=== PATIENT | female | born 1955 | race Asian ===

== ENCOUNTER 2017-07-29 04:55 | Day surgery (SDC) | payer OTHER ==
[2017-07-28 18:03] VITALS: BMI 22.4
[2017-07-29] MEDS ORDERED: ISOSULFAN BLUE 10 MG/ML VIAL SQ ONE (12:29)
[2017-07-29] MEDS ORDERED: PROPOFOL 20 ML ONE (12:37)
[2017-07-29] MEDS ORDERED: MIDAZOLAM HCL 2 MG/2 ML SINGLE DOSE VIAL ONE (12:37)
[2017-07-29] MEDS ORDERED: LIDOCAINE HCL/PF 2% SDV 5ML VIAL ONE (12:55)
[2017-07-29] MEDS ORDERED: DEXAMETHASONE SOD PHOSPHATE 4 MG/1 ML VIAL ONE (13:01)
[2017-07-29] MEDS ORDERED: ceFAZolin SODIUM 1 GM VIAL ONE (13:02)
[2017-07-29] MEDS ORDERED: SODIUM CHLORIDE 0.9% P/F 10 ML VIAL IJ ONE (13:02)
[2017-07-29] MEDS ORDERED: ceFAZolin SODIUM 1 GM VIAL IVPB ONE (13:04)
[2017-07-29] MEDS ORDERED: KETOROLAC TROMETHAMINE 30 MG/1 ML VIAL ONE (13:49)
[2017-07-29] MEDS ORDERED: PROMETHAZINE HCL 25 MG/1 ML VIAL IVPUSH PRN (14:20)
[2017-07-29] MEDS ORDERED: ONDANSETRON 4 MG/2 ML VIAL IVPUSH PRN (14:20)
--- NOTE | 2017-07-29 14:28 | HP ---
History & Physical Update - History History: No Change - Physical Physical: No Change - Assessment Assessment: No Change - Plan Plan: No Change
[2017-07-29] MEDS ORDERED: LACTATED RINGERS SOLUTION 1,000 ML IV SCH (14:30)
--- NOTE | 2017-07-29 15:04 | OP ---
DATE OF OPERATION: 07/29/2017 PREOPERATIVE DIAGNOSIS: Right breast cancer. POSTOPERATIVE DIAGNOSIS: Right breast cancer. PROCEDURE: Right breast ultrasound-guided wire localized lumpectomy with sentinel node biopsy. SURGEON: Hailee Boss MD ANESTHESIA: General. ESTIMATED BLOOD LOSS: Minimal. COMPLICATIONS: None. DISPOSITION: Stable at the end of the procedure. INDICATION FOR PROCEDURE: Patient presented with an abnormal screening mammogram, and ultrasound noted a mass in the retroareolar, slightly inner right breast. A needle core biopsy showed invasive carcinoma. My recommendation was a lumpectomy and sentinel node biopsy. Though this was close to the nipple, I felt this was more adjacent to the nipple, and I felt I could probably get a margin around anteriorly. The procedure was discussed with her. All the questions answered. The option of a mastectomy was discussed as well. PROCEDURE IN DETAIL: Patient was brought to [facility], taken to Nuclear Medicine where technetium labeled sulfur colloid was injected by the nuclear medicine radiologist as a periareolar incision in the outer right breast. She was brought to the operating room. After induction of general anesthesia, an intraoperative ultrasound was performed by me, and the lesion in the right breast 3 o'clock retroareolar location was identified. A Kopans wire was used to localize this under the usual aseptic technique. Next, 5 mL of isosulfan blue dye was injected into the right subareolar plexus. The breast was then massaged for 5 minutes. The right breast and axilla were then prepped and draped in the usual sterile fashion. A 4-cm incision was made in the right axilla, carried down to the clavipectoral fascia to identify a sentinel lymph node that was blue and hot. There was no other blue dye or radioactivity in the axilla. However, I did feel a larger lymph node which I sent as a right axillary non-sentinel node. This is likely the dominant node. There was a second non-sentinel node as well adjacent to this. So, this was all sent as right axillary non-sentinel node. Hemostasis assured with electrocautery. Again, there was no other blue dye radioactivity or pathological feeling lymph nodes in the right axilla including against the chest wall, and after this, the sentinel node biopsy was completed. The right lumpectomy was performed. An ellipse of skin was taken to include the part of the nipple medially at the 3 o'clock location out radially. Superior, inferior, medial, and lateral flaps were raised, and the en bloc lumpectomy was performed, tagged with a long stitch lateral, short stitch superior. I did feel I was partially close anteriorly. However, I was not sure if this was truly just a part of the nipple or dermis. I also felt I was close inferiorly and superiorly. Therefore, I took a new superior margin with a stitch at the old margin and a new inferior margin with a stitch at the old margin. These specimens were all sent to Pathology for permanent section. Hemostasis was assured with electrocautery. The parenchyma was approximated with interrupted 2-0 Vicryl, skin approximated with interrupted 2-0 Vicryl and running 4-0 Prolene. The axillary incision was also closed in the routine fashion with interrupted 0 Vicryl and running 4-0 Prolene. A sterile dressing with Tegaderm and 4 x 4's applied. She tolerated the procedure well, was extubated on the operating room table, and was taken to Recovery in good condition. Mai [id number]
[2017-07-29 17:08] VITALS: TEMP 98.4
[2017-07-29 18:19] VITALS: BP 147/77; PULSE 74
--- NOTE | 2017-08-04 14:29 | PATH ---
Surgical Pathology Report Patient Name: BALDEV HAMEED [facility]. Rec. #: [id number] /Age/Gender: 1955 (Age: 62) / F Account: [id number] Location: [facility] Taken: 07/29/2017 Received: 07/30/2017 Reported: 08/04/2017 Physicians: Hailee Boss M.D. Specimen(s) Received A: RIGHT AXILLARY SENTINEL LYMPH NODE B: RIGHT AXILLARY NON SENTINEL LYMPH NODE (DOMINANT NODE) C: RIGHT BREAST LUMPECTOMY D: RIGHT BREAST NEW SUPERIOR MARGIN E: RIGHT BREAST NEW INFERIOR MARGIN Clinical History Invasive carcinoma Final Diagnosis A. Axillary sentinel node #1, right, excision: One of TWO lymph nodes with MICROmetastatic carcinoma (1/2, micrometastasis less < 2 mm). Carcinoma measures 1 mm in greatest microscopic dimension. No extranodal extension identified. B. Axillary non-sentinel lymph node, right, excision: FOUR benign lymph nodes (0/4). C. BREAST RIGHT, LUMPECTOMY: INVASIVE DUCTAL CARCINOMA, WELL DIFFERENTIATED (TUBULE SCORE: 2/3, NUCLEAR GRADE: 2/3, MITOTIC SCORE: 1/3; TOTAL SHAQUILLE SCORE: 5/9). INVASIVE CARCINOMA MEASURES 1.4 CM IN GREATEST DIMENSION, MICROSCOPICALLY. FOCAL DUCTAL CARCINOMA IN SITU (DCIS), SOLID AND CRIBRIFORM TYPES, INTERMEDIATE NUCLEAR GRADE. NO LYMPHOVASCULAR INVASION IDENTIFIED. Invasive carcinoma extends to INKED AND CAUTERIZED SUPERIOR MARGIN and <1mm FROM iNFERIOR MARGIN. dcis IS 3 mm FROM CLOSEST superior MARGIN. SEE SPECIMEN D-E FOR FINAL MARGINS. SKIN IS PRESENT AND UNINVOLVED BY CARCINOMA. Microcalcifications present within invasive carcinoma and benign breast tissue. Remainder of breast tissue shows fibrocystic to fibroadenomatoid changes including stromal fibrosis, microcysts, and usual ductal hyperplasia. PRIOR BIOPSY SITE CHANGES ARE PRESENT. PATHOLOGIC STAGE (pTNM): pT1c pN1mi. SEE INVASIVE CARCINOMA CASE SUMMARY BELOW. D. BREAST, RIGHT, NEW SUPERIOR MARGIN, EXCISION: BENIGN BREAST TISSUE. E. BREAST, RIGHT, NEW INFERIOR MARGIN, EXCISION: BENIGN BREAST TISSUE WITH PROLIFERATIVE FIBROCYSTIC CHANGES INCLUDING STROMAL FIBROSIS MICROCYSTS, AND USUAL DUCTAL HYPERPLASIA. Comment: Immunohistochemical stain performed at [place], [place] ([id number]) and interpreted at [facility] show the invasive carcinoma is positive for E-cadherin, supporting ductal phenotype. Comments Breast Invasive Carcinoma: Surgical Pathology Case Summary (Based on AJCC TNM 8 th edition) Procedure _X_ Excision (less than total mastectomy) Specimen Laterality _X_ Right Tumor Size _X_ Greatest dimension of largest invasive focus >1 mm (specify exact measurement) (millimeters): _14_ mm Histologic Type _X_ Invasive carcinoma of no special type (ductal, not otherwise specified) Histologic Grade ([place] Histologic Score) Glandular (Acinar)/Tubular Differentiation _X_ Score 2 (10% to 75% of tumor area forming glandular/tubular structures) Nuclear Pleomorphism _X_ Score 2 Mitotic Rate _X_ Score 1 Overall Grade _X_ Grade 1 (score of 5) Tumor Focality _X_ Single focus of invasive carcinoma Ductal Carcinoma In Situ (DCIS) _X_ DCIS is present in specimen _X_ Negative for extensive intraductal component (EIC) Margins Invasive Carcinoma Margins _X__ Uninvolved by invasive carcinoma: Invasive carcinoma is at the superior margin and <1 MM from inferior margin in lumpectomy specimen (Specimen C), however final superior and inferior margins are negative (specimen D & E) DCIS Margins _X_ Uninvolved by DCIS Distance from closest margin (millimeters): _3_ mm Closest margin: [place] Regional Lymph Nodes Number of Lymph Nodes with Macrometastases (>2 mm): 0 Number of Lymph Nodes with Micrometastases (>0.2 mm to 2 mm and/or >200 cells): 1 Number of Lymph Nodes with Isolated Tumor Cells (=0.2 mm and =200 cells): 0 Size of Largest Metastatic Deposit (millimeters): 1 mm Extranodal Extension: _X_ Not identified Number of Lymph Nodes Examined: 6 Number of [place] Nodes Examined: 2 Treatment Effect _X_ No known presurgical therapy Lymphovascular Invasion _X_ Not identified Pathologic Stage Classification (pTNM, AJCC 8th Edition) Primary Tumor (Invasive Carcinoma) (pT) _X_ pT1c: Tumor >10 mm but =20 mm in greatest dimension Category (pN) _X_ pN1mi: Micrometastases (approximately 200 cells, larger than 0.2 mm, but none larger than 2.0 mm) Biomarker Studies Results of ER and HI studies performed on this specimen on prior biopsy ([id number]) at [facility] are as follows: ER (clone [id number] mouse monoclonal antibody by [employer]): 99% nuclear staining with strong intensity (Positive). HI (clone16 mouse monoclonal antibody by [employer]): 99% nuclear staining with strong intensity (Positive). Her2 IHC (EP3 from [employer], formerly known as [id number], using Carvajal Polymer Refine detection kit): 1+ (Negative) Ki67: ~5% (Low proliferative index) Electronically Signed Irish Najera M.D. Gross Description A. Received in formalin labeled "right axillary sentinel lymph node #1," are 2 milan, irregular lymph node with attached fat measuring 0.7 x 0.7 x 0.5 cm and 0.8 x 0.7 x 0.6 cm. The lymph nodes are entirely submitted in 2 cassettes as follows: 1-one whole bisected lymph node; 2-one whole trisected lymph node. B. Received in formalin labeled "right axillary non-sentinel lymph node (dominant node)," are 4 milan, irregular lymph nodes with attached fat ranging from 0.7-1.2 cm in greatest dimension. The lymph nodes are submitted in 4 cassettes as follows: 1-4-one whole bisected lymph node each. C. Received in formalin, labeled "right breast lumpectomy," is a 5.8 x 3.2 x 3.0 cm. milan-yellow, irregular, portion of fibroadipose tissue with a needle localization wire present. There is a short suture marking the superior aspect and a long suture marking the lateral aspect, per the surgeon. The anterior surface displays a 2.8 x 0.7 cm milan, elliptical portion of skin. The specimen is inked as follows: Superior blue; inferior green; lateral red; medial yellow; deep black. The specimen is serially sectioned from lateral to medial. Sectioning reveals a 1.4 x 1.0 x 0.9 cm milan, indurated mass focally abutting the inferior margin and 0.2 cm from the superior margin. The mass is 0.5 cm from the skin. Fitting Room Inspector sections are submitted in 7 cassettes as follows: 1-3-one full face section of mass each (each with skin, superior and inferior margins); 4-5-deep margin; 6-lateral margin; 7-medial margin. Total formalin fixation time: 24-34 hours D. Received in formalin labeled "right breast new superior margin," is a 5.5 x 2.8 x 1.5 cm portion of fibroadipose tissue with a suture marking the old margin, per the surgeon. The new margin is inked blue and the specimen is serially sectioned. The specimen is entirely and sequentially submitted in 10 cassettes. E. Received in formalin labeled "right breast new inferior margin," is a 3.8 x 3.5 x 1.7 cm portion of fibroadipose tissue with a suture marking the old margin, per the surgeon. The new margin is inked blue and the specimen is serially sectioned. The specimen is entirely and sequentially submitted in 8 cassettes. 07/30/2017 [facility]07/30/2017
== END 2017-07-29 18:10 | disposition home or self-care (01) ==
LOC: JASU-SURG 04:55
PROVIDERS: ATTEND Surgery
PROC: 0HBT0ZZ Excision of Right Breast, Open Approach (ICD-10-PCS; principal; 2017-07-29 12:00)
DX: C50.911 Malignant neoplasm of unspecified site of right female breast (principal)
CPT/HCPCS: 78195-TC; 82962; 88307-TC; 94760; A9541

== ENCOUNTER 2018-07-08 07:07 | Day surgery (SDC) | payer OTHER ==
[2018-07-08 11:11] LABS: BASO % 0.7 % (0-2.0); EOS % 0.9 % (0-4.5); HEMATOCRIT 33.8 % (32.4-45.2); HEMOGLOBIN 11.6 GM/dL (10.7-15.3); MCH 28.6 pg (25.7-33.7); MCHC 34.2 g/dl (32.0-36.0); MEAN CELL VOLUME 83.6 fl (80-96); MEAN PLT VOLUME 6.4 fl (7.5-11.1); MONO % 7.6 % (3.8-10.2); NEUT % 59.8 % (42.8-82.8); PLATELET COUNT 285 K/MM3 (134-434); RBC 4.05 M/mm3 (3.60-5.2); RDW 12.5 % (11.6-15.6); WHITE BLOOD COUNT 7.2 K/mm3 (4.0-10.0)
[2018-07-08 11:34] LABS: ALBUMIN 3.5 g/dl (3.4-5.0); ALK PHOS 55 U/L (45-117); ANION GAP 6 MMOL/L (8-16); BILIRUBIN,DIRECT 0.1 mg/dL (0.0-0.2); BILIRUBIN,TOTAL 0.5 mg/dL (0.2-1); BLOOD UREA NITROGEN 11 mg/dL (7-18); CALCIUM 9.1 mg/dL (8.5-10.1); CHLORIDE 98 mmol/L (98-107); CO2 26 mmol/L (21-32); CREATININE 0.6 mg/dL (0.55-1.3); GLUCOSE,RANDOM 108 mg/dL (74-106); MAGNESIUM 1.7 mg/dL (1.8-2.4); POTASSIUM 4.1 mmol/L (3.5-5.1); SGOT/AST 16 U/L (15-37); SGPT/ALT 31 U/L (13-61); SODIUM 131 mmol/L (136-145); TOT PROT 8.4 g/dl (6.4-8.2)
[2018-07-08] MEDS ORDERED: ZOLEDRONIC ACID 4 MG in SODIUM CHLORIDE 100 ML IVPB ONE (11:47)
[2018-07-08] MEDS ORDERED: ACETAMINOPHEN 325 MG TABLET (FP) PO ONE (11:47)
[2018-07-08] MEDS ORDERED: MAGNESIUM SULF 50% (8.12 MEQ/2 ML-1 GM VIAL) IVPB ONE (11:47)
[2018-07-08 18:55] VITALS: BP 153/73; PULSE 68; TEMP 98.9
== END 2018-07-08 15:30 | disposition home or self-care (01) ==
LOC: JONCCHEMO 07:07 → J7W 12:30 → JONCCHEMO 15:30 → J7W 15:30
PROVIDERS: ATTEND Internal Medicine Hematology & Oncology
PROC: 3E033GC Introduction of Other Therapeutic Substance into Peripheral Vein, Percutaneous Approach (ICD-10-PCS; principal; 2018-07-08)
PROC: 3E033GC Introduction of Other Therapeutic Substance into Peripheral Vein, Percutaneous Approach (ICD-10-PCS; 2018-07-08)
DX: C50.919 Malignant neoplasm of unspecified site of unspecified female breast (principal); Z76.89 Persons encountering health services in other specified circumstances
CPT/HCPCS: 36415; 80048; 80076; 83735; 85025; 96365; 96366; 96367; 96417; J3489

== ENCOUNTER 2019-01-27 10:09 | Day surgery (SDC) | payer OTHER ==
[2019-01-25 13:26] VITALS: BMI 23.4
[2019-01-27 10:36] LABS: PH,URINE 7.5 (5.0-8.0); URINE APPEARANCE CLEAR; URINE BILIRUBIN NEGATIVE (NEGATIVE); URINE COLOR YELLOW; URINE GLUCOSE (UA) NEGATIVE (NEGATIVE); URINE KETONE NEGATIVE (NEGATIVE); URINE LEUK ESTERASE NEGATIVE (NEGATIVE); URINE NITRITE NEGATIVE (NEGATIVE); URINE PROTEIN NEGATIVE (NEGATIVE); URINE UROBILINOGEN 0.2 mg/dL (0.2-1.0)
[2019-01-27] MEDS ORDERED: PROPOFOL 20 ML ONE ×3 (11:15→11:21)
[2019-01-27] MEDS ORDERED: DEXAMETHASONE SOD PHOSPHATE 4 MG/1 ML VIAL ONE (11:15)
[2019-01-27] MEDS ORDERED: MIDAZOLAM HCL 2 MG/2 ML SINGLE DOSE VIAL ONE (11:15)
[2019-01-27] MEDS ORDERED: LIDOCAINE HCL/PF 2% SDV 5ML VIAL ONE (11:15)
[2019-01-27] MEDS ORDERED: ONDANSETRON 4 MG/2 ML VIAL IVPUSH PRN (11:58)
[2019-01-27] MEDS ORDERED: oxyCODONE HCL 5 MG TABLET PO PRN ×2 (11:58)
[2019-01-27] MEDS ORDERED: LACTATED RINGERS SOLUTION 1,000 ML IV SCH (12:00)
[2019-01-27] MEDS ORDERED: ceFAZolin SODIUM 1 GM VIAL IVPB ONE (12:59)
[2019-01-27] MEDS ORDERED: ceFAZolin SODIUM 1 GM VIAL ONE (12:59)
[2019-01-27] MEDS ORDERED: SODIUM CHLORIDE 0.9% P/F 10 ML VIAL IJ ONE (12:59)
[2019-01-27] MEDS ORDERED: KETOROLAC TROMETHAMINE 30 MG/1 ML VIAL ONE (12:59)
--- NOTE | 2019-01-27 13:28 | OP ---
Operative Note - Note: Operative Date: 01/27/19 Pre-Operative Diagnosis: Endometrial hyperplasia Operation: Hysteroscopy. D and C. Findings: Tiny uterus, extreme anteversion. Adnexa negative. Post-Operative Diagnosis: Same as Pre-op Surgeon: Maximo Acuña Anesthesiologist/[employer] SUPERVISOR: Sonja Bailey Anesthesia: General Specimens Removed: [facility] Estimated Blood Loss (mls): 5 Operative Report Dictated: Yes
[2019-01-27 15:11] VITALS: BP 155/85; PULSE 90; TEMP 98.5
--- NOTE | 2019-01-28 11:06 | OP ---
DATE OF OPERATION: DATE OF DICTATION: 01/27/2019 PREOPERATIVE DIAGNOSIS: Endometrial hyperplasia. POSTOPERATIVE DIAGNOSIS: Endometrial hyperplasia. PROCEDURE: Hysteroscopy, dilation and curettage. FINDINGS: Profound atrophy. Small cervix and uterus. Uterus sharply anteflexed and anteverted with cervix difficult to identify. PROCEDURE AND FINDINGS: Under light general anesthesia, patient was prepped and draped in the normal fashion. Bladder was emptied with straight catheter. Following routine prep, cervix was impossible to find using speculum. Vaginal mucosa anteriorly was grasped with a tenaculum, and slowly with few bites that did not bleed, cervix was brought to the view. Anterior lip was grasped with a tenaculum. Sounding was performed because of a sharp anteversion and very atrophic, thin uterine buck. Care was taken to avoid perforation. Consequently, it was impossible to find the fundus, and final measurements of uterine cavity length was not obtained. Os was dilated minimally, and hysteroscope was placed in the cavity. The cavity was poorly visualized. Endocervix appeared to be normal. Using small curette, gentle, sharp curettage was carried out producing specimen that contained mostly mucus. Presence of the mucus would explain sonographic findings of thickened endometrium with possible fluid. Small amount of endometrial tissue most likely was in the specimen. After gentle curettage, hysteroscopy was repeated, and there was no evidence of any abnormalities, perforation, etc. There was minimal blood staining of the endometrial buck. All the instruments were removed. Procedure was terminated. Total blood loss was as little as less than 5 mL. In stable condition, comfortable, patient was transferred to PACU. KARI CHAPMAN MD [id number]
--- NOTE | 2019-01-28 16:56 | PATH ---
Surgical Pathology Report Patient Name: BALDEV HAMEED [facility]. Rec. #: [id number] /Age/Gender: 1955 (Age: 63) / F Account: [id number] Location: [facility] Taken: 01/27/2019 Received: 01/27/2019 Reported: 01/28/2019 Physicians: Maximo Acuña MD Specimen(s) Received ENDOMETRIAL CURETTINGS Clinical History Endometrial hyperplasia Final Diagnosis ENDOMETRIAL CURETTINGS: FRAGMENTS OF ENDOCERVICAL TISSUE ADMIXED WITH MUCUS SHOWING CHRONIC INFLAMMATION AND FOCAL SQUAMOUS METAPLASIA. NO ENDOMETRIAL TISSUE PRESENT FOR EVALUATION. Electronically Signed David Diaz M.D. Gross Description Received in formalin labeled "endometrial curettings," is a 2.0 x 2.0 x 0.3 cm aggregate of milan-pink soft tissue fragments admixed with blood-tinged mucous. The formalin is filtered and the specimen is entirely submitted in one cassette. /01/27/2019 [place]01/27/2019
== END 2019-01-27 15:14 | disposition home or self-care (01) ==
LOC: JASU-SURG 10:09
PROVIDERS: ATTEND Specialist
PROC: 0UJD8ZZ Inspection of Uterus and Cervix, Via Natural or Artificial Opening Endoscopic (ICD-10-PCS; 2019-01-27)
PROC: 0UDB7ZX Extraction of Endometrium, Via Natural or Artificial Opening, Diagnostic (ICD-10-PCS; principal; 2019-01-27 12:00)
DX: N85.00 Endometrial hyperplasia, unspecified (principal); E11.9 Type 2 diabetes mellitus without complications; I10 Essential (primary) hypertension
CPT/HCPCS: 81003; 82962; 94760

== ENCOUNTER 2020-06-21 07:25 | Day surgery (SDC) | payer OTHER ==
[2020-06-21] MEDS ORDERED: SODIUM CHLORIDE 1,000 ML IV SCH (10:00)
[2020-06-21] MEDS ORDERED: ZOLEDRONIC ACID 4 MG in SODIUM CHLORIDE 100 ML IVPB ONE (10:00)
[2020-06-21 10:03] LABS: BASO % 0.7 % (0-2.0); EOS % 0.7 % (0-4.5); HEMATOCRIT 36.3 % (32.4-45.2); LYMPH % 24.4 % (8-40); MCH 26.9 pg (25.7-33.7); MCHC 33.1 g/dl (32.0-36.0); MEAN CELL VOLUME 81.4 fl (80-96); MEAN PLT VOLUME 6.6 fl (7.5-11.1); MONO % 6.7 % (3.8-10.2); NEUT % 67.5 % (42.8-82.8); PLATELET COUNT 301 K/MM3 (134-434); RBC 4.45 M/mm3 (3.60-5.2); RDW 13.5 % (11.6-15.6); WHITE BLOOD COUNT 7.9 K/mm3 (4.0-10.0)
[2020-06-21 10:21] LABS: POTASSIUM 4.1 mmol/L (3.5-5.1)
[2020-06-21 10:24] LABS: CALCIUM 9.8 mg/dL (8.5-10.1)
[2020-06-21 10:25] LABS: ALBUMIN 3.8 g/dl (3.4-5.0); BLOOD UREA NITROGEN 15.2 mg/dL (7-18)
[2020-06-21 10:28] LABS: CREATININE 0.8 mg/dL (0.55-1.3)
[2020-06-21 10:30] LABS: BILIRUBIN,TOTAL 0.5 mg/dL (0.2-1); TOT PROT 8.6 g/dl (6.4-8.2)
[2020-06-21 14:27] VITALS: BP 116/64; PULSE 70; TEMP 5
== END 2020-06-21 11:37 | disposition home or self-care (01) ==
LOC: JONCCHEMO 07:25
PROVIDERS: ATTEND Internal Medicine Hematology & Oncology
PROC: 3E033GC Introduction of Other Therapeutic Substance into Peripheral Vein, Percutaneous Approach (ICD-10-PCS; principal; 2020-06-21)
DX: C50.919 Malignant neoplasm of unspecified site of unspecified female breast (principal); M81.0 Age-related osteoporosis without current pathological fracture
CPT/HCPCS: 36415; 80053; 82306; 85025; 96365; J3489

== ENCOUNTER → 2020-11-08 | Day surgery (SDC) | payer OTHER ==
[~2020-11-08] MED LIST: ACETAMINOPHEN 325 MG TABLET (FP) PO ONE; SODIUM CHLORIDE 1,000 ML IV ONE; ZOLEDRONIC ACID 4 MG in SODIUM CHLORIDE 100 ML IVPB ONE
[2020-11-08 15:23] LABS: BASO % 0.7 % (0-2.0); EOS % 1.2 % (0-4.5); HEMATOCRIT 34.4 % (32.4-45.2); HEMOGLOBIN 11.6 GM/dL (10.7-15.3); LYMPH % 27.3 % (8-40); MCH 27.7 pg (25.7-33.7); MCHC 33.7 g/dl (32.0-36.0); MEAN CELL VOLUME 82.3 fl (80-96); MEAN PLT VOLUME 6.6 fl (7.5-11.1); NEUT % 64.8 % (42.8-82.8); PLATELET COUNT 291 10^3/uL (134-434); RBC 4.18 M/mm3 (3.60-5.2); RDW 13.3 % (11.6-15.6)
[2020-11-08 15:44] LABS: CHLORIDE 102 mmol/L (98-107); SODIUM 136 mmol/L (136-145)
[2020-11-08 15:46] LABS: ALBUMIN 3.8 g/dl (3.4-5.0); ANION GAP 6 MMOL/L (8-16); CALCIUM 8.9 mg/dL (8.5-10.1); CO2 28 mmol/L (21-32); GLUCOSE,RANDOM 82 mg/dL (74-106)
[2020-11-08 15:49] LABS: SGOT/AST 15 U/L (15-37); SGPT/ALT 27 U/L (13-61)
[2020-11-08 15:50] LABS: CREATININE 0.6 mg/dL (0.55-1.3); LDH 132 U/L (84-246)
[2020-11-08 15:51] LABS: BILIRUBIN,TOTAL 0.2 mg/dL (0.2-1); TOT PROT 8.1 g/dl (6.4-8.2)
[2020-11-08 15:52] LABS: ALK PHOS 38 U/L (45-117)
[2020-11-08 16:37] LABS: ERYTHROCYTE SEDIMENTATION RATE 48 mm/hr (0-30)
== END | disposition home or self-care (01) ==
LOC: JONCCHEMO 07:46
PROVIDERS: ATTEND Internal Medicine Hematology & Oncology
DX: Z53.8 Procedure and treatment not carried out for other reasons (principal)
CPT/HCPCS: 36415; 80053; 82306; 83615; 84443; 85025; 85651; 86038; 86140; 86300; 96365

== ENCOUNTER 2020-12-07 07:39 | Day surgery (SDC) | payer OTHER ==
[2020-12-07] MEDS ORDERED: DENOSUMAB 60 MG/ML DISP.SYRIN SQ ONE (14:30)
[2020-12-07 14:32] LABS: BASO % 0.7 % (0-2.0); EOS % 0.8 % (0-4.5); HEMATOCRIT 31.8 % (32.4-45.2); HEMOGLOBIN 10.8 GM/dL (10.7-15.3); LYMPH % 34.7 % (8-40); MCH 27.7 pg (25.7-33.7); MEAN CELL VOLUME 81.3 fl (80-96); MEAN PLT VOLUME 6.3 fl (7.5-11.1); NEUT % 57.8 % (42.8-82.8); PLATELET COUNT 301 10^3/uL (134-434); RBC 3.91 M/mm3 (3.60-5.2); RDW 12.8 % (11.6-15.6); WHITE BLOOD COUNT 9.2 K/mm3 (4.0-10.0)
[2020-12-07 14:54] LABS: CALCIUM 8.7 mg/dL (8.5-10.1)
[2020-12-07 14:55] LABS: ALBUMIN 3.4 g/dl (3.4-5.0); BLOOD UREA NITROGEN 11.2 mg/dL (7-18)
[2020-12-07 14:58] LABS: CREATININE 0.6 mg/dL (0.55-1.3)
[2020-12-07 14:59] LABS: BILIRUBIN,TOTAL 0.4 mg/dL (0.2-1)
[2020-12-07 16:38] VITALS: BP 145/64; PULSE 60; TEMP 98.3
== END 2020-12-07 15:30 | disposition home or self-care (01) ==
LOC: JONCCHEMO 07:39
PROVIDERS: ATTEND Internal Medicine Hematology & Oncology
PROC: 3E013GC Introduction of Other Therapeutic Substance into Subcutaneous Tissue, Percutaneous Approach (ICD-10-PCS; principal; 2020-12-07)
DX: C50.811 Malignant neoplasm of overlapping sites of right female breast (principal); Z17.0 Estrogen receptor positive status [ER+]; Z76.89 Persons encountering health services in other specified circumstances
CPT/HCPCS: 36415; 80053; 85025; 96372; J0897

== ENCOUNTER 2021-07-13 08:40 | Day surgery (SDC) | payer OTHER ==
[~2021-07-13 08:40] MED LIST changes: -ACETAMINOPHEN 325 MG TABLET (FP) PO ONE; +DENOSUMAB 60 MG/ML DISP.SYRIN SQ ONE; -SODIUM CHLORIDE 1,000 ML IV ONE; -ZOLEDRONIC ACID 4 MG in SODIUM CHLORIDE 100 ML IVPB ONE
[2021-07-13] MEDS ORDERED: DENOSUMAB 60 MG/ML DISP.SYRIN SQ ONE (10:00)
[2021-07-13 15:00] LABS: BASO % 0.7 % (0-2.0); HEMATOCRIT 31.7 % (32.4-45.2); HEMOGLOBIN 10.7 GM/dL (10.7-15.3); LYMPH % 26.5 % (8-40); MCH 27.4 pg (25.7-33.7); MCHC 33.9 g/dl (32.0-36.0); MEAN CELL VOLUME 80.8 fl (80-96); MEAN PLT VOLUME 6.1 fl (7.5-11.1); MONO % 6.8 % (3.8-10.2); PLATELET COUNT 353 10^3/uL (134-434); RBC 3.92 M/mm3 (3.60-5.2); RDW 12.9 % (11.6-15.6)
[2021-07-13 15:14] LABS: CALCIUM 8.9 mg/dL (8.5-10.1)
[2021-07-13 15:15] LABS: ALBUMIN 3.5 g/dl (3.4-5.0)
[2021-07-13 15:17] LABS: CREATININE 0.6 mg/dL (0.55-1.3)
[2021-07-13 15:19] LABS: BILIRUBIN,TOTAL 0.3 mg/dL (0.2-1); TOT PROT 7.9 g/dl (6.4-8.2)
[2021-07-13 17:39] VITALS: BP 141/72; PULSE 70; TEMP 98.2
== END 2021-07-13 16:15 | disposition home or self-care (01) ==
LOC: JONCCHEMO 08:40
PROVIDERS: ATTEND Internal Medicine Hematology & Oncology
DX: Z51.11 Encounter for antineoplastic chemotherapy (principal); C50.811 Malignant neoplasm of overlapping sites of right female breast; Z17.0 Estrogen receptor positive status [ER+]
CPT/HCPCS: 36415; 80053; 82306; 82728; 83540; 83550; 85025; 96401; J0897

== ENCOUNTER 2022-01-08 11:56 | Day surgery (SDC) | payer OTHER ==
[2022-01-08 13:18] LABS: BASO % 0.4 % (0-2.0); HEMATOCRIT 36.9 % (32.4-45.2); HEMOGLOBIN 12.1 GM/dL (10.7-15.3); MCH 27.2 pg (25.7-33.7); MCHC 32.9 g/dl (32.0-36.0); MEAN CELL VOLUME 82.7 fl (80-96); MEAN PLT VOLUME 6.5 fl (7.5-11.1); MONO % 7.4 % (3.8-10.2); NEUT % 63.2 % (42.8-82.8); PLATELET COUNT 318 10^3/uL (134-434); RBC 4.46 M/mm3 (3.60-5.2); RDW 13.4 % (11.6-15.6); WHITE BLOOD COUNT 7.2 K/mm3 (4.0-10.0)
[2022-01-08 13:52] LABS: ALBUMIN 3.7 g/dl (3.4-5.0); BILIRUBIN,DIRECT 0.1 mg/dL (0.0-0.2); BILIRUBIN,TOTAL 0.4 mg/dL (0.2-1); BLOOD UREA NITROGEN 14.3 mg/dL (7-18); CALCIUM 9.4 mg/dL (8.5-10.1); CREATININE 0.7 mg/dL (0.55-1.3); MAGNESIUM 2.1 mg/dL (1.8-2.4); TOT PROT 8.4 g/dl (6.4-8.2)
[2022-01-08 17:55] VITALS: BP 123/72; PULSE 68; RESP 20; TEMP 97.8
== END 2022-01-08 12:30 | disposition home or self-care (01) ==
LOC: JONCNONCHE 11:56
PROVIDERS: ATTEND Internal Medicine Hematology & Oncology
DX: Z51.11 Encounter for antineoplastic chemotherapy (principal); C50.811 Malignant neoplasm of overlapping sites of right female breast; Z17.0 Estrogen receptor positive status [ER+]
CPT/HCPCS: 36415; 80048; 80076; 82378; 83735; 85025; 86300; 96401; J0897

== ENCOUNTER 2022-06-28 10:23 | Day surgery (SDC) | payer OTHER ==
[2022-06-28] MEDS ORDERED: DENOSUMAB 60 MG/ML DISP.SYRIN SQ ONE (13:00)
[2022-06-28 17:51] VITALS: BP 109/65; PULSE 76; RESP 20; TEMP 98.1
== END 2022-06-28 14:35 | disposition home or self-care (01) ==
LOC: JONCCHEMO 10:23
PROVIDERS: ATTEND Internal Medicine Hematology & Oncology
DX: C50.811 Malignant neoplasm of overlapping sites of right female breast (principal); M81.0 Age-related osteoporosis without current pathological fracture
CPT/HCPCS: 96372; J0897

== ENCOUNTER 2023-06-20 14:25 | Day surgery (SDC) | payer OTHER ==
[2023-06-20] MEDS: DENOSUMAB 60 MG/ML DISP.SYRIN SQ ONE (14:17)
[2023-06-20 17:22] VITALS: BP 124/58; PULSE 83; RESP 20; TEMP 98.1
== END 2023-06-20 14:30 | disposition home or self-care (01) ==
LOC: JONCCHEMO 14:25 → J7W 14:26 → JONCCHEMO 14:30
PROVIDERS: ATTEND Internal Medicine Hematology & Oncology
PROC: 3E013GC Introduction of Other Therapeutic Substance into Subcutaneous Tissue, Percutaneous Approach (ICD-10-PCS; principal; 2023-06-20)
DX: C50.811 Malignant neoplasm of overlapping sites of right female breast (principal); M81.0 Age-related osteoporosis without current pathological fracture
CPT/HCPCS: 96372; J0897

== ENCOUNTER 2024-02-05 12:32 | Day surgery (SDC) | payer OTHER ==
[2024-02-05] MEDS: DENOSUMAB 60 MG/ML DISP.SYRIN SQ ONE (12:58)
[2024-02-05 13:30] VITALS: BP 111/60; PULSE 83; RESP 18; TEMP 97.7
== END 2024-02-05 13:15 | disposition home or self-care (01) ==
LOC: JONCCHEMO 12:32 → J7W 12:33 → JONCCHEMO 13:15
PROVIDERS: ATTEND Internal Medicine Hematology & Oncology
PROC: 3E033GC Introduction of Other Therapeutic Substance into Peripheral Vein, Percutaneous Approach (ICD-10-PCS; principal; 2024-02-05)
DX: M81.8 Other osteoporosis without current pathological fracture (principal)
CPT/HCPCS: 96372; J0897